=== PATIENT | female | born 1970 | race Caucasian/White ===

== ENCOUNTER → 2022-07-09 13:54 | Outpatient (CLI) | payer OTHER, MEDICAID, SELFPAY ==
[2022-07-09 15:03] LABS: Add Manual Diff / Slide Review NO; Basophils Absolute Auto 0 /uL (0-100); Basophils Percent Auto 0.5 % (0-2); Eosinophils Absolute Auto 500 /uL (0-450); Eosinophils Percent Auto 8.5 % (2-4); Hematocrit 38.4 % (36-46); Hemoglobin 13.1 g/dL (12.0-16.0); Lymphocytes Absolute Auto 1600 /uL (1100-4500); Lymphocytes Percent Auto 26.2 % (25-40); Mean Corpuscular HGB Conc 34.1 % (30-36); Mean Corpuscular Hemoglobin 29.6 PG (26-34); Mean Corpuscular Volume 86.7 fL (80-100); Monocytes Absolute Auto 400 /uL (0-900); Monocytes Percent Auto 5.8 % (3-14); Neutrophils Absolute Auto 3600 /uL (1500-7000); Platelet Count 333 X10^3/uL (150-400); Red Blood Cell Count 4.43 X10^6/uL (4.0-5.2); Red Cell Distribution Width 13.2 % (11.6-14.8); White Blood Cell Count 6.1 X10^3/uL (4.5-11.0)
[2022-07-09 15:39] LABS: Appearance Urine UA CLEAR; Bilirubin Urine UA NEGATIVE (NEGATIVE); Color Urine UA YELLOW; Glucose Urine UA NEGATIVE (Negative); Ketones Urine UA NEGATIVE (NEGATIVE); Leukocyte Esterase Urine UA TRACE (NEGATIVE); Nitrite Urine UA NEGATIVE (Negative); Occult Blood Urine UA 1+ (Negative); Protein Urine UA NEGATIVE (Negative); Urobilinogen Urine UA 0.2 E.U./dL (0.2)
[2022-07-09 15:49] LABS: Bacteria Urine Occasional (0-1); Culture Indicated Urine Specimen Cultured; RBC Urine 1-5/HPF (0-5/HPF); Squamous Epithelial Cell Urine 0-1 /HPF (0-5/HPF); WBC Urine 0-1/HPF (0-5/HPF)
[2022-07-09 17:09] LABS: Urine N gonorrhoeae NOT DETECTED
[2022-07-09 17:13] LABS: Alanine Aminotransferase 30 IU/L (<35); Albumin 4.5 g/dL (3.5-5.0); Albumin Globulin Ratio 1.3 (1.0-2.8); Alkaline Phosphatase 61 U/L (38-126); Aspartate Aminotransferase 32 IU/L (14-36); BUN Creatinine Ratio 17.2 (6-22); Bilirubin Total 0.5 mg/dL (0.2-1.3); Blood Urea Nitrogen 11 mg/dL (7-17); Calcium 9.4 mg/dL (8.4-10.2); Carbon Dioxide 31 mmol/L (22-32); Chloride 99 mmol/L (98-107); Cholesterol 253 mg/dL (140-199); Estimated Glomerular Filt Rate > 60 mL/min (>60); Globulin 3.4 g/dL (1.7-4.1); Glucose 85 mg/dL (70-100); HDL Cholesterol 51 mg/dL (40-60); HEMOLYSIS < 15 (0-50); LDL Cholesterol Calculated 154 mg/dL (<100); Sodium 137 mmol/L (137-145); Total Protein 7.9 g/dL (6.3-8.2); Triglycerides 242 mg/dL (35-150)
[2022-07-09 17:39] LABS: Urine Chlamydia NOT DETECTED
[2022-07-09 17:46] LABS: TSH w/ Reflex to FT4 0.89 uIU/mL (0.47-4.68)
[2022-07-10 16:00] LABS: Hemoglobin A1C% w Est Avg Glu 5.4 % (4.0-6.0)
== END ==
PROVIDERS: PCP Family Medicine; Referring Provider Family Medicine; Visit Provider Family Medicine
DX: I10 Essential (primary) hypertension; Z11.3 Encounter for screening for infections with a predominantly sexual mode of transmission
CPT/HCPCS: 36415; 80053; 80061; 81001; 83036; 84443; 85025; 87086; 87491; 87591

== ENCOUNTER → 2022-07-12 14:30 | Outpatient (CLI) | payer OTHER, MEDICAID, SELFPAY ==
[2022-07-16 07:44] LABS: Fecal Immunochemical Test Negative (Negative)
== END ==
PROVIDERS: PCP Family Medicine; Referring Provider Family Medicine; Visit Provider Family Medicine
DX: I10 Essential (primary) hypertension (principal)
CPT/HCPCS: 82274

== ENCOUNTER → 2022-09-03 11:20 | Outpatient (CLI) | payer OTHER, MEDICAID, SELFPAY ==
[2022-09-03 12:50] LABS: Influenza A - CEPHEID Flu A NEGATIVE (NEGATIVE); Influenza B - CEPHEID Flu B NEGATIVE (NEGATIVE); Respiratory Syncytial Virus Negative (Negative)
[2022-09-03 13:19] LABS: COVID-19 CEPHEID 4-PLEX PCR Negative (Negative)
== END ==
PROVIDERS: PCP Family Medicine; Visit Provider Family Medicine
DX: R05.9 Cough, unspecified (principal)
CPT/HCPCS: 0241U

== ENCOUNTER → 2022-09-22 11:55 | Outpatient (CLI) | payer OTHER, MEDICAID, SELFPAY ==
[2022-09-22 13:11] LABS: TSH w/ Reflex to FT4 1.72 uIU/mL (0.47-4.68)
[2022-09-22 14:33] LABS: Add Manual Diff / Slide Review NO; Basophils Absolute Auto 0 /uL (0-100); Basophils Percent Auto 0.5 % (0-2); Eosinophils Absolute Auto 500 /uL (0-450); Eosinophils Percent Auto 6.1 % (2-4); Hematocrit 36.3 % (36-46); Hemoglobin 12.5 g/dL (12.0-16.0); Lymphocytes Absolute Auto 1600 /uL (1100-4500); Lymphocytes Percent Auto 19.4 % (25-40); Mean Corpuscular HGB Conc 34.4 % (30-36); Mean Corpuscular Hemoglobin 30.3 PG (26-34); Mean Corpuscular Volume 88.1 fL (80-100); Monocytes Absolute Auto 400 /uL (0-900); Monocytes Percent Auto 4.5 % (3-14); Neutrophils Absolute Auto 5700 /uL (1500-7000); Neutrophils Percent Auto 69.5 % (50-75); Platelet Count 426 X10^3/uL (150-400); Red Blood Cell Count 4.12 X10^6/uL (4.0-5.2); Red Cell Distribution Width 13.3 % (11.6-14.8); White Blood Cell Count 8.2 X10^3/uL (4.5-11.0)
== END ==
PROVIDERS: Family Medicine; PCP Family Medicine; Referring Provider Family Medicine; Visit Provider Family Medicine
DX: E89.0 Postprocedural hypothyroidism (principal)
CPT/HCPCS: 36415; 84443; 85025

== ENCOUNTER 2022-10-05 19:00 | Emergency (ER) | payer OTHER, MEDICAID, SELFPAY ==
[2022-10-05 19:18] VITALS: BP 162/89; PULSE 95; RESP 17; TEMP 36.6; O2SAT 97; BMI 29.7
--- NOTE | 2022-10-05 19:25 | DI.RAD.S_ITS ---
PROCEDURE: XR CHEST 1V INDICATIONS: chest pain TECHNIQUE: One view of the chest was acquired. COMPARISON: None. FINDINGS: Surgical changes and devices: None. Lungs and pleura: Lungs are clear. No pleural effusions or pneumothorax. Mediastinum: Mediastinal contours appear normal. Heart size is normal. Bones and chest wall: No suspicious bony lesions. Overlying soft tissues appear unremarkable. IMPRESSION: No acute cardiopulmonary abnormality. Dictated by: David Robert M.D. on 10/05/2022 at 20:20 Approved by: David Robert M.D. on 10/05/2022 at 20:20
--- NOTE | 2022-10-05 19:52 | ED.CHESTPAIN ---
HPI - Chest Pain General Chief Complaint: Chest Pain Stated Complaint: Sent by doctor, Pain in head Time Seen by Provider: 10/05/22 19:25 Source: patient Mode of arrival: Ambulatory Limitations: no limitations Related Data Previous Rx's Medication Instructions Recorded losartan 50 mg tablet 50 mg PO DAILY blood pressure #90 07/09/22 tabs levothyroxine 150 mcg capsule 150 mcg PO DAILY #90 caps 08/03/22 Allergies Allergy/AdvReac Type Severity Reaction Status Date / Time codeine Allergy Intermediate Vomiting Verified 09/24/22 10:12 Sulfa (Sulfonamide Allergy Intermediate Hives Verified 09/24/22 10:12 Antibiotics) Patient History Medical History (Updated 08/13/22 @ 08:48 by Esau Aldrich DO) Absent kidney, congenital Benign essential HTN Chicken pox (~1977) Family history of pancreatic cancer Heavy menstrual period (~1998) Hyperlipidemia Hyperthyroidism (~2009) Hypothyroid (~2019) Lung nodule (~2017) Painful menstrual periods Family History (Updated 08/09/22 @ 21:39 by Lupe De León) Father History of heart disease Hypertension Mother Cancer Sister Hyperthyroidism Grandfather Cancer Grandmother Stroke Dementia Grandmother Diabetes mellitus Family/Other Diabetes type I Social History Smoking Status: Never smoker Smoking Status: Never smoker alcohol intake frequency: a few times a month Substance Use Type: does not use Exam Initial Vital Signs Initial Vital Signs: Vital Signs Temperature 97.8 F 10/05/22 19:18 Pulse Rate 95 H 10/05/22 19:18 Respiratory Rate 17 10/05/22 19:18 Blood Pressure 162/89 H 10/05/22 19:18 Pulse Oximetry 97 10/05/22 19:18 Oxygen Delivery Method Room Air 10/05/22 19:18 Course Orders Ordered: ED Orders 10/05/22 19:25 XR chest 1V Stat Complete Blood Count AUTO DIFF Stat Comprehensive Metabolic Panel Stat Lipase Stat Troponin & CK Cardiac Panel Stat EKG-12 Lead Stat Sodium Chloride (Normal Saline 0.9%) 1,000 mls @ 150 mls/hr IV CONT FERNY Discontinued Medications Aspirin (Aspirin 81 Mg Chew Tab) 324 mg PO NOW ONE Stop: 10/05/22 19:26 Vital Signs Vital signs: Vital Signs - 8 hr 10/05/22 19:18 Temperature 97.8 F Pulse Rate 95 H Respiratory Rate 17 Blood Pressure 162/89 H Pulse Oximetry 97 Oxygen Delivery Method Room Air Discharge Plan Departure Prescriptions: No Action levothyroxine 150 mcg capsule 150 mcg PO DAILY Qty: 90 3RF losartan 50 mg tablet 50 mg PO DAILY Qty: 90 3RF Referrals: Esau Aldrich DO [Primary Care Provider] -
[2022-10-05 20:06] LABS: Add Manual Diff / Slide Review NO; Basophils Absolute Auto 0 /uL (0-100); Basophils Percent Auto 0.4 % (0-2); Eosinophils Absolute Auto 400 /uL (0-450); Eosinophils Percent Auto 5.4 % (2-4); Hematocrit 37.4 % (36-46); Hemoglobin 12.8 g/dL (12.0-16.0); Lymphocytes Absolute Auto 1900 /uL (1100-4500); Lymphocytes Percent Auto 23.6 % (25-40); Mean Corpuscular HGB Conc 34.2 % (30-36); Mean Corpuscular Volume 87.7 fL (80-100); Monocytes Absolute Auto 400 /uL (0-900); Monocytes Percent Auto 4.8 % (3-14); Neutrophils Absolute Auto 5200 /uL (1500-7000); Neutrophils Percent Auto 65.8 % (50-75); Platelet Count 328 X10^3/uL (150-400); Red Blood Cell Count 4.26 X10^6/uL (4.0-5.2); White Blood Cell Count 7.9 X10^3/uL (4.5-11.0)
[2022-10-05 20:15] LABS: Alanine Aminotransferase 25 IU/L (<35); Albumin 4.6 g/dL (3.5-5.0); Albumin Globulin Ratio 1.3 (1.0-2.8); Alkaline Phosphatase 67 U/L (38-126); Aspartate Aminotransferase 28 IU/L (14-36); BUN Creatinine Ratio 14.9 (6-22); Bilirubin Total 0.4 mg/dL (0.2-1.3); Blood Urea Nitrogen 14 mg/dL (7-17); Carbon Dioxide 25 mmol/L (22-32); Chloride 103 mmol/L (98-107); Creatine Kinase 125 U/L (30-135); Estimated Glomerular Filt Rate > 60 mL/min (>60); Globulin 3.5 g/dL (1.7-4.1); Glucose 110 mg/dL (70-100); HEMOLYSIS < 15 (0-50); Lipase 121 U/L (23-300); Potassium 3.5 mmol/L (3.4-5.1); Sodium 139 mmol/L (137-145); Total Protein 8.1 g/dL (6.3-8.2)
[2022-10-05 20:26] LABS: Troponin I 0.059 ng/mL (0.01-0.034)
[2022-10-05 20:30] LABS: CKMB % Relative Index 0.6 % (1.5-5.0); Creatine Kinase MB 0.72 ng/mL (<2.37)
[2022-10-05 21:36] VITALS: BP 138/73; PULSE 71; O2SAT 99
[2022-10-05] MEDS: ASPIRIN 81 MG CHEW TAB 324 MG PO (22:00)
[2022-10-05 22:32] VITALS: BP 122/74; PULSE 68; RESP 16; TEMP 36.3; O2SAT 98
== END 2022-10-05 22:32 | disposition home or self-care (01) ==
PROVIDERS: Emergency Provider Emergency Medicine; PCP Family Medicine
DX: R07.9 Chest pain, unspecified (principal)
CPT/HCPCS: 36415; 71045; 80053; 82550; 82553; 83690; 84484; 85025; 93005; 99284

== ENCOUNTER 2022-10-07 16:21 | Emergency (ER) | payer OTHER, MEDICAID, SELFPAY ==
[2022-10-07 17:03] VITALS: BP 166/107; PULSE 93; RESP 20; TEMP 36.6; O2SAT 100; BMI 28.1
--- NOTE | 2022-10-07 18:22 | PC.NURSE ---
Pt called from waiting room wondering how much longer. She is tired of waiting. This RN encouraged pt to stay and wait.
[2022-10-07 18:29] LABS: Bacteria Urine None Seen; Culture Indicated Urine Cult Not Indicated; RBC Urine 0-1/HPF (0-5/HPF); Squamous Epithelial Cell Urine 0-1 /HPF (0-5/HPF); WBC Urine 0-1/HPF (0-5/HPF)
--- NOTE | 2022-10-07 18:37 | DI.CT.S_ITS ---
PROCEDURE: CT HEAD/BRAIN WO CON INDICATIONS: headache TECHNIQUE: Noncontrast 4.5 mm thick angled axial sections acquired from the foramen magnum to the vertex, with coronal and sagittal reformats. For radiation dose reduction, the following was used: automated exposure control, adjustment of mA and/or kV according to patient size. COMPARISON: None. FINDINGS: Image quality: Excellent. CSF spaces: Basal cisterns are patent. No extra-axial fluid collections. Ventricles are normal in size and shape. Brain: No midline shift. No intracranial masses or hemorrhage. Anna-white matter interface is normal. Skull and face: Calvarium and visualized facial bones are intact, without suspicious lesions. Sinuses: The maxillary sinuses are opacified. IMPRESSION: No acute intracranial abnormality. Dictated by: Brian Rosales M.D. on 10/07/2022 at 18:12 Approved by: Brian Rosales M.D. on 10/07/2022 at 18:14
[2022-10-07 18:58] LABS: Add Manual Diff / Slide Review NO; Basophils Absolute Auto 100 /uL (0-100); Basophils Percent Auto 0.6 % (0-2); Eosinophils Absolute Auto 700 /uL (0-450); Eosinophils Percent Auto 6.9 % (2-4); Hematocrit 38.3 % (36-46); Hemoglobin 13.1 g/dL (12.0-16.0); Lymphocytes Absolute Auto 2500 /uL (1100-4500); Lymphocytes Percent Auto 24.1 % (25-40); Mean Corpuscular HGB Conc 34.1 % (30-36); Mean Corpuscular Hemoglobin 29.7 PG (26-34); Mean Corpuscular Volume 87.2 fL (80-100); Monocytes Absolute Auto 400 /uL (0-900); Monocytes Percent Auto 4.3 % (3-14); Neutrophils Absolute Auto 6600 /uL (1500-7000); Neutrophils Percent Auto 64.1 % (50-75); Platelet Count 371 X10^3/uL (150-400); Red Cell Distribution Width 13.3 % (11.6-14.8); White Blood Cell Count 10.3 X10^3/uL (4.5-11.0)
[2022-10-07 19:08] LABS: Alanine Aminotransferase 25 IU/L (<35); Albumin 4.7 g/dL (3.5-5.0); Albumin Globulin Ratio 1.3 (1.0-2.8); Alkaline Phosphatase 71 U/L (38-126); Aspartate Aminotransferase 27 IU/L (14-36); BUN Creatinine Ratio 17.1 (6-22); Bilirubin Total 0.6 mg/dL (0.2-1.3); Blood Urea Nitrogen 13 mg/dL (7-17); Calcium 9.8 mg/dL (8.4-10.2); Carbon Dioxide 28 mmol/L (22-32); Chloride 101 mmol/L (98-107); Creatine Kinase 94 U/L (30-135); Estimated Glomerular Filt Rate > 60 mL/min (>60); Globulin 3.7 g/dL (1.7-4.1); Glucose 101 mg/dL (70-100); HEMOLYSIS < 15 (0-50); Lipase 75 U/L (23-300); Potassium 3.6 mmol/L (3.4-5.1); Sodium 138 mmol/L (137-145); Total Protein 8.4 g/dL (6.3-8.2)
[2022-10-07 19:19] LABS: Troponin I < 0.012 ng/mL (0.01-0.034)
[2022-10-07 20:02] VITALS: O2SAT 97
[2022-10-07 20:03] VITALS: BP 168/99; PULSE 96; O2SAT 98
--- NOTE | 2022-10-07 20:22 | ED_ITS ---
HPI - Headache General Chief Complaint: Headache Stated Complaint: right eye/sinus pain x7 days Time Seen by Provider: 10/07/22 18:36 Source: patient Mode of arrival: Ambulatory Limitations: no limitations History of Present Illness HPI Narrative: 51-year-old female who I does have a history of headaches. Started to have headaches and sinus pain for the past several days. She has been doing DayQuil and NyQuil and other [id number] medications for the past couple days. She was at the walk-in clinic earlier today. Has prescribed antibiotics and also nasal steroid. She was standing at the pharmacy picking up her medicines where she stated that she became lightheaded so she came to the emergency department for further evaluation. Related Data Previous Rx's Medication Instructions Recorded losartan 50 mg tablet 50 mg PO DAILY blood pressure #90 07/09/22 tabs levothyroxine 150 mcg capsule 150 mcg PO DAILY #90 caps 08/03/22 amoxicillin 875 mg-potassium 1 tab PO BID #14 tabs 10/07/22 clavulanate 125 mg tablet ipratropium bromide 42 mcg (0.06 2 spray intranasal TID 4 days #15 10/07/22 %) nasal spray mL sumatriptan succinate 25 mg tablet See Rx Instructions PO .COMPLEX 10/07/22 (Imitrex) #10 tabs Allergies Allergy/AdvReac Type Severity Reaction Status Date / Time codeine Allergy Intermediate Vomiting Verified 10/07/22 12:31 Sulfa (Sulfonamide Allergy Intermediate Hives Verified 10/07/22 12:31 Antibiotics) Review of Systems Constitutional Constitutional: Reports system reviewed and no additional complaints, except as documented ENT Ears, Nose, Mouth, and Throat: Reports system reviewed and no additional complaints, except as documented Cardiovascular Cardiovascular: Reports system reviewed and no additional complaints, except as documented Respiratory Respiratory: Reports system reviewed and no additional complaints, except as do cumented Integumentary/Breasts Skin/Breast: Reports system reviewed and no additional complaints, except as documented Hematologic/Lymphatic Hematologic/Lymphatic: Reports system reviewed and no additional complaints, except as documented Patient History Medical History Absent kidney, congenital Benign essential HTN Chicken pox (~1977) Family history of pancreatic cancer Heavy menstrual period (~1998) Hyperlipidemia Hyperthyroidism (~2009) Hypothyroid (~2019) Lung nodule (~2018) Painful menstrual periods Family History (Updated 08/09/22 @ 21:39 by Lupe De León) Father History of heart disease Hypertension Mother Cancer Sister Hyperthyroidism Grandfather Cancer Grandmother Stroke Dementia Grandmother Diabetes mellitus Family/Other Diabetes type I Social History Smoking Status: Never smoker Smoking Status: Never smoker alcohol intake frequency: a few times a month Substance Use Type: does not use Exam Initial Vital Signs Initial Vital Signs: Vital Signs Temperature 98 F 10/07/22 17:03 Pulse Rate 93 H 10/07/22 17:03 Respiratory Rate 20 10/07/22 17:03 Blood Pressure 166/107 H 10/07/22 17:03 Pulse Oximetry 100 10/07/22 17:03 Oxygen Delivery Method Room Air 10/07/22 17:03 Const General: cooperative, comfortable and No ill appearing HENMT Head: normal to inspection and normocephalic Resp Effort & Inspection: normal respiratory effort Cardio Rate: regular rate Skin General: no rashes or lesions noted Neuro General: patient alert, patient awake and moves all extremities Extrem General: normal to inspection Course Orders Ordered: ED Orders 10/07/22 18:00 Urine Microscopic Stat 10/07/22 18:14 EKG-12 Lead Stat 10/07/22 18:37 CT head/brain wo con Stat 10/07/22 18:50 Complete Blood Count AUTO DIFF Stat Comprehensive Metabolic Panel Stat Lipase Stat Troponin & CK Cardiac Panel Stat Discontinued Medications Sumatriptan Succinate (Sumatriptan 25 Mg Tablet) 25 mg PO NOW ONE Stop: 10/07/22 20:25 Last Admin: 10/07/22 20:41 Dose: Not Given Documented By: YAMINI Vital Signs Vital signs: Vital Signs - 8 hr 10/07/22 20:02 10/07/22 20:03 10/07/22 20:03 Pulse Rate 96 H Blood Pressure 168/99 H Pulse Oximetry 97 98 MDM - Headache Lab Data Attestation: I reviewed the patient's lab results. 10/07/22 18:50 10/07/22 18:50 Labs: Lab Results 10/07/22 10/07/22 10/07/22 Range/Units 18:00 18:50 18:50 WBC 10.3 (4.5-11.0) X10^3/uL RBC 4.40 (4.0-5.2) X10^6/uL Hgb 13.1 (12.0-16.0) g/dL Hct 38.3 (36-46) % MCV 87.2 (80-100) fL MCH 29.7 (26-34) PG MCHC 34.1 (30-36) % RDW 13.3 (11.6-14.8) % Plt Count 371 (150-400) X10^3/uL Neut % (Auto) 64.1 (50-75) % Lymph % (Auto) 24.1 L (25-40) % [place] % (Auto) 4.3 (3-14) % Eos % (Auto) 6.9 H (2-4) % Baso % (Auto) 0.6 (0-2) % Neut # (Auto) 6600 (4780-5137) /uL Lymph # (Auto) 2500 (6146-2982) /uL [place] # (Auto) 400 (0-900) /uL Eos # (Auto) 700 H (0-450) /uL Baso # (Auto) 100 (0-100) /uL Sodium 138 (137-145) mmol/L Potassium 3.6 (3.4-5.1) mmol/L Chloride 101 (98-107) mmol/L Carbon Dioxide 28 (22-32) mmol/L BUN 13 (7-17) mg/dL Creatinine 0.76 (0.52-1.04) mg/dL Estimated GFR > 60 (>60) mL/min BUN/Creatinine Ratio 17.1 (6-22) Glucose 101 H (70-100) mg/dL Calcium 9.8 (8.4-10.2) mg/dL Total Bilirubin 0.6 (0.2-1.3) mg/dL AST 27 (14-36) IU/L ALT 25 (<35) IU/L Alkaline Phosphatase 71 (38-126) U/L Total Creatine Kinase 94 (30-135) U/L CK-MB (CK-2) TNP CK-MB (CK-2) Rel Index TNP Troponin I < 0.012 (0.01-0.034) ng/mL Total Protein 8.4 H (6.3-8.2) g/dL Albumin 4.7 (3.5-5.0) g/dL Globulin 3.7 (1.7-4.1) g/dL Albumin/Globulin Ratio 1.3 (1.0-2.8) Lipase 75 (23-300) U/L Urine RBC 0-1/hpf (0-5/HPF) Urine WBC 0-1/hpf (0-5/HPF) Ur Squamous Epith Cells 0-1 /hpf (0-5/HPF) Urine Bacteria None seen (None) Ur Culture Indicated? Cult not indicated Urine Dip Bedside Urine Glucose Negative Bedside Urine Bilirubin - Negative Bedside Urine Ketone - Negative Urine Specific [place] 1.005 Bedside Urine Occult Blood +/- Bedside Urine pH 6.0 Bedside Urine Protein - Negative Bedside Urine Urobilinogen - Negative Bedside Urine Nitrite - Negative Bedside Urine Leukocytes - Negative Esterase Imaging Data CT scan - head: Radiologist's Impression: PROCEDURE:? CT HEAD/BRAIN WO CON ? INDICATIONS:? headache ? TECHNIQUE:? Noncontrast 4.5 mm thick angled axial sections acquired from the foramen magnum to the vertex, with coronal and sagittal reformats.? For radiation dose reduction, the following was used:? automated exposure control, adjustment of mA and/or kV according to patient size.? ? COMPARISON:? None. ? FINDINGS:? Image quality:? Excellent.? ? CSF spaces:? Basal cisterns are patent.? No extra-axial fluid collections.? Ventricles are normal in size and shape.? ? Brain:? No midline shift.? No intracranial masses or hemorrhage.? Anna-white matter interface is normal.? ? Skull and face:? Calvarium and visualized facial bones are intact, without suspicious lesions.? ? Sinuses:? The maxillary sinuses are opacified.? ? IMPRESSION: ? No acute intracranial abnormality. ECG Data Attestation: I personally reviewed and interpreted this ECG as follows: Interpretation: Sinus rhythm Ventricular rate 94 Normal axis Normal QRS Normal QTC Nonspecific ST T wave changes MDM Narrative Medical decision making narrative: Patient has a nonfocal neurologic exam. Head CT is unremarkable. No signs of intracranial hemorrhage. I have low suspicion for CVA. Low suspicion for TIA. Low suspicion for meningitis. We did discuss her use of [id number] medications and to make sure that she is not using multiple combination substances that have same medications and them. Patient was given Zomig per her request for her headache. We did discuss the use of antihistamines. We did talk about the antibiotics and she is going to try the nasal steroids 1st and if her symptoms do not improve then she can start the antibiotics. Did discuss that there does not appear to be any frontal sinus disease which is where she is having the symptoms however following up with Ear Nose and Throat is not unreasonable given her length of symptoms. She was given return precautions. She expressed understanding and agreement. Discharge Plan Departure Patient Disposition: Home Clinical Impression: Headache, Sinus congestion Instructions: DI for Headache Activity Restrictions/Additional Instructions: I do recommend that you continue to take all of your medications as directed however you could hold on taking the antibiotics and see whether or not the steroids that you were written a prescription for this morning improve your symptoms. That prescription should be taken for the next couple days per the instructions on the bottle. It would not be unreasonable for you to see ENT. You can talk with your primary doctor about this. Return to the emergency department for any new symptoms. Prescriptions: New sumatriptan succinate [Imitrex] 25 mg tablet See Rx Instructions .ROUTE .COMPLEX Qty: 10 0RF Rx Instructions: take 1 tab at onset of headache; if no relief may repeat 1 tab after at least 2 hrs; max = 4 tabs/24 hr No Action amoxicillin-pot clavulanate 875-125 mg tablet 1 tab PO BID Qty: 14 0RF ipratropium bromide 42 mcg (0.06 %) spray,non-aerosol 2 spray intranasal TID 4 Days Qty: 15 0RF Rx Instructions: administer into each nostril levothyroxine 150 mcg capsule 150 mcg PO DAILY Qty: 90 3RF losartan 50 mg tablet 50 mg PO DAILY Qty: 90 3RF Referrals: Esau Aldrich DO [Primary Care Provider] - Stand Alone Forms: Patient Portal/API
== END 2022-10-07 20:45 | disposition home or self-care (01) ==
PROVIDERS: Emergency Provider Emergency Medicine; PCP Family Medicine
DX: R51.9 Headache, unspecified (principal); R09.81 Nasal congestion; R07.9 Chest pain, unspecified
CPT/HCPCS: 36415; 70450; 80053; 81003; 81015; 82550; 83690; 84484; 85025; 93005; 99281; 99284

== ENCOUNTER 2022-11-13 17:58 | Emergency (ER) | payer OTHER, MEDICAID, SELFPAY ==
[2022-11-13] VITALS (8 sets, daily range): BP systolic 137–178; BP diastolic 66–94; PULSE 56–71; RESP 15–25; TEMP 37.2; O2SAT 97–99; BMI 29.7
--- NOTE | 2022-11-13 18:21 | DI.RAD.S_ITS ---
PROCEDURE: XR CHEST 1V INDICATIONS: chest pain TECHNIQUE: One view of the chest was acquired. COMPARISON: [facility], CR, XR CHEST 1V, 10/05/2022, 19:28. FINDINGS: Surgical changes and devices: None. Lungs and pleura: Lungs are clear. No pleural effusions or pneumothorax. Mediastinum: Mediastinal contours appear normal. Heart size is normal. Bones and chest wall: No suspicious bony lesions. Overlying soft tissues appear unremarkable. IMPRESSION: No acute cardiopulmonary abnormalities or focal airspace disease. Dictated by: Tino Rubio M.D. on 11/13/2022 at 19:29 Approved by: Tino Rubio M.D. on 11/13/2022 at 19:29
[2022-11-13 18:40] LABS: Add Manual Diff / Slide Review NO; Basophils Absolute Auto 0 /uL (0-100); Basophils Percent Auto 0.6 % (0-2); Eosinophils Absolute Auto 1000 /uL (0-450); Hematocrit 36.3 % (36-46); Hemoglobin 12.3 g/dL (12.0-16.0); Lymphocytes Absolute Auto 1800 /uL (1100-4500); Lymphocytes Percent Auto 24.7 % (25-40); Mean Corpuscular HGB Conc 33.9 % (30-36); Mean Corpuscular Hemoglobin 29.6 PG (26-34); Mean Corpuscular Volume 87.3 fL (80-100); Monocytes Absolute Auto 300 /uL (0-900); Monocytes Percent Auto 4.7 % (3-14); Neutrophils Absolute Auto 4200 /uL (1500-7000); Platelet Count 320 X10^3/uL (150-400); Red Blood Cell Count 4.16 X10^6/uL (4.0-5.2); Red Cell Distribution Width 13.2 % (11.6-14.8); White Blood Cell Count 7.3 X10^3/uL (4.5-11.0)
[2022-11-13 18:46] LABS: PTT Partial Thromboplastin Tim 28 SECONDS (26-36)
--- NOTE | 2022-11-13 18:56 | ED_ITS ---
HPI - Headache General Chief Complaint: Headache Stated Complaint: Migraine Time Seen by Provider: 11/13/22 18:38 Source: patient Mode of arrival: Ambulatory Limitations: no limitations History of Present Illness HPI Narrative: Patient is a 51-year-old female who does have a history of migraine headaches. She also states she is had quite a bit of stress in her life recently over various family issues. She is here for evaluation of a couple days increasing tension in the back of her head. She states this is causing a headache. She has tried her headache medication at home without any improvement. She states it is more on the left side. It does hurt when she turns her head does hurt when you touch the left paraspinal region. She is getting some tingling in her left hand occasionally. She also feels like the pain goes down into her upper back. She has been on methocarbamol in the past. Is not on this medication currently because she is run out. She denies any chest pain or shortness of breath. No vomiting. No fevers. Related Data Previous Rx's Medication Instructions Recorded levothyroxine 150 mcg capsule 150 mcg PO DAILY #90 caps 08/03/22 hydroxyzine HCl 10 mg tablet 10 - 20 mg PO TID PRN anxiety #60 10/12/22 tabs losartan 100 mg tablet 100 mg PO DAILY blood pressure #90 10/12/22 tabs escitalopram oxalate 10 mg tablet 10 mg PO DAILY #30 tabs 10/23/22 (Lexapro) ondansetron HCl 4 mg tablet 4 mg PO TID-QID PRN nausea and 10/23/22 vomiting #30 tabs sumatriptan succinate 100 mg See Rx Instructions PO .COMPLEX 10/23/22 tablet (Imitrex) #10 tabs chlorthalidone 25 mg tablet 25 mg PO DAILY blood pressure #90 10/30/22 tabs clonidine HCl 0.2 mg tablet 0.2 mg PO TID PRN hypertensive 10/30/22 emergency #20 tabs propranolol 40 mg tablet 40 mg PO BID #60 tabs 10/30/22 methocarbamol 500 mg tablet 500 mg PO TID PRN muscle spasm #30 11/13/22 tabs Allergies Allergy/AdvReac Type Severity Reaction Status Date / Time codeine Allergy Intermediate Vomiting Verified 10/30/22 15:51 Sulfa (Sulfonamide Allergy Intermediate Hives Verified 10/30/22 15:51 Antibiotics) Review of Systems Review of Systems ROS Unobtainable: All systems reviewed & are unremarkable except as noted in HPI and below Patient History Medical History Absent kidney, congenital Benign essential HTN Chicken pox (~1977) Family history of pancreatic cancer IVIS (generalized anxiety disorder) Heavy menstrual period (~1998) Hyperlipidemia Hyperthyroidism (~2009) Lung nodule (~2017) Migraine Painful menstrual periods Family History (Updated 08/09/22 @ 21:39 by Lupe De León) Father History of heart disease Hypertension Mother Cancer Sister Hyperthyroidism Grandfather Cancer Grandmother Stroke Dementia Grandmother Diabetes mellitus Family/Other Diabetes type I Social History Smoking Status: Never smoker Smoking Status: Never smoker alcohol intake frequency: a few times a month Substance Use Type: does not use Exam Initial Vital Signs Initial Vital Signs: Vital Signs Temperature 98.9 F 11/13/22 18:09 Pulse Rate 71 11/13/22 18:09 Respiratory Rate 20 11/13/22 18:09 Blood Pressure 178/94 H 11/13/22 18:09 Pulse Oximetry 98 11/13/22 18:09 Oxygen Delivery Method Room Air 11/13/22 18:09 Const General: cooperative, comfortable and No ill appearing HENMT Head: normal to inspection and normocephalic Face and sinus: normal facial exam Resp Effort & Inspection: normal respiratory effort Cardio Rate: regular rate Back/Spine/Pelvis Cervical Spine: cervical muscular tenderness (Left-sided paraspinal) and No cervical spinal tenderness Skin General: no rashes or lesions noted Neuro General: patient alert, patient awake, patient oriented x3 and moves all extremities Speech: speech normal Gait: normal gait Extrem General: normal to inspection and capillary refill normal Course Orders Ordered: ED Orders 11/13/22 18:21 XR chest 1V Stat EKG-12 Lead Stat 11/13/22 18:29 Complete Blood Count AUTO DIFF Stat Comprehensive Metabolic Panel Stat Lipase Stat Magnesium Stat PTT Partial Thromboplastin Gaurang Stat Prothrombin Time INR Stat Troponin & CK Cardiac Panel Stat 11/13/22 18:40 COVID19 -Nasal RAPID Stat Discontinued Medications Aspirin (Aspirin 81 Mg Chew Tab) 324 mg PO NOW ONE Stop: 11/13/22 18:22 Last Admin: 11/13/22 19:13 Dose: 324 mg Documented By: AJITH Methocarbamol (Methocarbamol 500 Mg Tablet) 500 mg PO NOW ONE Stop: 11/13/22 18:57 Last Admin: 11/13/22 19:13 Dose: 500 mg Documented By: AJITH Vital Signs Vital signs: Vital Signs - 8 hr 11/13/22 18:09 11/13/22 18:37 11/13/22 18:39 Temperature 98.9 F Pulse Rate 71 63 Respiratory Rate 20 25 H Blood Pressure 178/94 H 160/88 H Pulse Oximetry 98 97 Oxygen Delivery Method Room Air 11/13/22 18:39 11/13/22 19:00 11/13/22 19:01 Temperature Pulse Rate 62 56 L Respiratory Rate 19 17 Blood Pressure 137/66 Pulse Oximetry 97 97 Oxygen Delivery Method 11/13/22 19:01 Temperature Pulse Rate 58 L Respiratory Rate 15 Blood Pressure Pulse Oximetry 97 Oxygen Delivery Method MDM - Headache Lab Data Attestation: I reviewed the patient's lab results. 11/13/22 18:29 11/13/22 18:29 Labs: Lab Results 11/13/22 11/13/22 11/13/22 Range/Units 18:29 18:29 18:29 WBC 7.3 (4.5-11.0) X10^3/uL RBC 4.16 (4.0-5.2) X10^6/uL Hgb 12.3 (12.0-16.0) g/dL Hct 36.3 (36-46) % MCV 87.3 (80-100) fL MCH 29.6 (26-34) PG MCHC 33.9 (30-36) % RDW 13.2 (11.6-14.8) % Plt Count 320 (150-400) X10^3/uL Neut % (Auto) 57.0 (50-75) % Lymph % (Auto) 24.7 L (25-40) % [place] % (Auto) 4.7 (3-14) % Eos % (Auto) 13.0 H (2-4) % Baso % (Auto) 0.6 (0-2) % Neut # (Auto) 4200 (8144-2031) /uL Lymph # (Auto) 1800 (6406-4344) /uL [place] # (Auto) 300 (0-900) /uL Eos # (Auto) 1000 H (0-450) /uL Baso # (Auto) 0 (0-100) /uL PT 12.0 (10.1-12.7) SECONDS INR 1.0 (0.9-1.3) APTT 28 (26-36) SECONDS Sodium 139 (137-145) mmol/L Potassium 3.7 (3.4-5.1) mmol/L Chloride 104 (98-107) mmol/L Carbon Dioxide 27 (22-32) mmol/L BUN 19 H (7-17) mg/dL Creatinine 0.77 (0.52-1.04) mg/dL Estimated GFR > 60 (>60) mL/min BUN/Creatinine Ratio 24.7 H (6-22) Glucose 116 H (70-100) mg/dL Calcium 9.0 (8.4-10.2) mg/dL Magnesium 2.1 (1.6-2.3) mg/dL Total Bilirubin 0.4 (0.2-1.3) mg/dL AST 30 (14-36) IU/L ALT 27 (<35) IU/L Alkaline Phosphatase 51 (38-126) U/L Total Creatine Kinase 131 (30-135) U/L CK-MB (CK-2) 1.03 (<2.37) ng/mL CK-MB (CK-2) Rel Index 0.8 L (1.5-5.0) % Troponin I < 0.012 (0.01-0.034) ng/mL Total Protein 7.1 (6.3-8.2) g/dL Albumin 4.0 (3.5-5.0) g/dL Globulin 3.1 (1.7-4.1) g/dL Albumin/Globulin Ratio 1.3 (1.0-2.8) Lipase 113 (23-300) U/L SARS-CoV-2 (PCR) (Negative) 11/13/22 Range/Units 18:40 WBC (4.5-11.0) X10^3/uL RBC (4.0-5.2) X10^6/uL Hgb (12.0-16.0) g/dL Hct (36-46) % MCV (80-100) fL MCH (26-34) PG MCHC (30-36) % RDW (11.6-14.8) % Plt Count (150-400) X10^3/uL Neut % (Auto) (50-75) % Lymph % (Auto) (25-40) % Vermilion % (Auto) (3-14) % Eos % (Auto) (2-4) % Baso % (Auto) (0-2) % Neut # (Auto) (6274-5304) /uL Lymph # (Auto) (3924-0047) /uL [place] # (Auto) (0-900) /uL Eos # (Auto) (0-450) /uL Baso # (Auto) (0-100) /uL PT (10.1-12.7) SECONDS INR (0.9-1.3) APTT (26-36) SECONDS Sodium (137-145) mmol/L Potassium (3.4-5.1) mmol/L Chloride (98-107) mmol/L Carbon Dioxide (22-32) mmol/L BUN (7-17) mg/dL Creatinine (0.52-1.04) mg/dL Estimated GFR (>60) mL/min BUN/Creatinine Ratio (6-22) Glucose (70-100) mg/dL Calcium (8.4-10.2) mg/dL Magnesium (1.6-2.3) mg/dL Total Bilirubin (0.2-1.3) mg/dL AST (14-36) IU/L ALT (<35) IU/L Alkaline Phosphatase (38-126) U/L Total Creatine Kinase (30-135) U/L CK-MB (CK-2) (<2.37) ng/mL CK-MB (CK-2) Rel Index (1.5-5.0) % Troponin I (0.01-0.034) ng/mL Total Protein (6.3-8.2) g/dL Albumin (3.5-5.0) g/dL Globulin (1.7-4.1) g/dL Albumin/Globulin Ratio (1.0-2.8) Lipase (23-300) U/L SARS-CoV-2 (PCR) Negative (Negative) Imaging Data Chest x-ray: Radiologist's Impression: ROCEDURE:? XR CHEST 1V ? INDICATIONS:? chest pain ? TECHNIQUE:? One view of the chest was acquired.? ? COMPARISON:? Located Within [facility], CR, XR CHEST 1V, 10/05/2022, 19:28. ? FINDINGS:? ? Surgical changes and devices:? None.? ? Lungs and pleura:? Lungs are clear.? No pleural effusions or pneumothorax.? ? Mediastinum:? Mediastinal contours appear normal.? Heart size is normal.? ? Bones and chest wall:? No suspicious bony lesions.? Overlying soft tissues appear unremarkable.? ? IMPRESSION:? No acute cardiopulmonary abnormalities or focal airspace disease. ECG Data Attestation: I personally reviewed and interpreted this ECG as follows: Interpretation: Sinus rhythm Ventricular rate is 62 Normal axis Normal QRS Normal QTC No ST T wave changes MDM Narrative Medical decision making narrative: Patient's labs and EKG and chest x-ray are unremarkable. Low suspicion for cardiac origin. I have a very high suspicion that her symptoms today our attention headache. She has tenderness to palpation left-sided paraspinal region. I suspect that the tingling in her left arm is related to this muscle tension as well. This could be triggering her migraines. She was given a dose of Robaxin here in the ER. Afterward states she does feel somewhat better and feels less tense in her neck. I have low suspicion for an acute intracranial pathology such as a head bleed. I do not feel that we need any radiologic studies of her head. I will refill her Robaxin. She was instructed to continue the rest of her medications as directed. She was given return precautions. She expressed understanding and agreement. Discharge Plan Departure Patient Disposition: Home Clinical Impression: Tension headache Instructions: DI for Headache Activity Restrictions/Additional Instructions: I do recommend that you continue to take all of your medications as directed. Keep all of your scheduled medical appointments. Contact your primary doctor for a follow-up. Return to the emergency department for new or worsening symptoms. Prescriptions: New methocarbamol 500 mg tablet 500 mg PO TID PRN (Reason: muscle spasm) Qty: 30 0RF No Action levothyroxine 150 mcg capsule 150 mcg PO DAILY Qty: 90 3RF losartan 100 mg tablet 100 mg PO DAILY Qty: 90 3RF hydroxyzine HCl 10 mg tablet 10 - 20 mg PO TID PRN (Reason: anxiety) Qty: 60 5RF escitalopram oxalate [Lexapro] 10 mg tablet 10 mg PO DAILY Qty: 30 11RF sumatriptan succinate [Imitrex] 100 mg tablet See Rx Instructions PO .COMPLEX Qty: 10 11RF Rx Instructions: take 1 tab at onset of headache; if no relief, may repeat 1 tab after at least 2 hrs; max = 2 tabs/24 hrs PO ondansetron HCl 4 mg tablet 4 mg PO TID-QID PRN (Reason: nausea and vomiting) Qty: 30 11RF chlorthalidone 25 mg tablet 25 mg PO DAILY Qty: 90 3RF clonidine HCl 0.2 mg tablet 0.2 mg PO TID PRN (Reason: hypertensive emergency) Qty: 20 0RF Rx Instructions: For BP >180/110 propranolol 40 mg tablet 40 mg PO BID Qty: 60 0RF Referrals: Esau Aldrich DO [Primary Care Provider] - Stand Alone Forms: Patient Portal/API
[2022-11-13 19:02] LABS: COVID19 -Nasal RAPID Negative (Negative)
[2022-11-13] MEDS: ASPIRIN 81 MG CHEW TAB 324 MG PO (19:13)
[2022-11-13] MEDS: methocarbamoL 500 MG TABLET PO (19:13)
[2022-11-13 19:35] LABS: Alanine Aminotransferase 27 IU/L (<35); Albumin Globulin Ratio 1.3 (1.0-2.8); Alkaline Phosphatase 51 U/L (38-126); Aspartate Aminotransferase 30 IU/L (14-36); BUN Creatinine Ratio 24.7 (6-22); Bilirubin Total 0.4 mg/dL (0.2-1.3); Blood Urea Nitrogen 19 mg/dL (7-17); Carbon Dioxide 27 mmol/L (22-32); Chloride 104 mmol/L (98-107); Creatine Kinase 131 U/L (30-135); Estimated Glomerular Filt Rate > 60 mL/min (>60); Globulin 3.1 g/dL (1.7-4.1); Glucose 116 mg/dL (70-100); HEMOLYSIS < 15 (0-50); Lipase 113 U/L (23-300); Magnesium 2.1 mg/dL (1.6-2.3); Potassium 3.7 mmol/L (3.4-5.1); Sodium 139 mmol/L (137-145); Total Protein 7.1 g/dL (6.3-8.2)
[2022-11-13 19:46] LABS: Troponin I < 0.012 ng/mL (0.01-0.034)
[2022-11-13 19:49] LABS: CKMB % Relative Index 0.8 % (1.5-5.0); Creatine Kinase MB 1.03 ng/mL (<2.37)
== END 2022-11-13 20:25 | disposition home or self-care (01) ==
PROVIDERS: Emergency Medicine; Emergency Provider Emergency Medicine; PCP Family Medicine
DX: G44.209 Tension-type headache, unspecified, not intractable (principal); R07.9 Chest pain, unspecified; Z20.822 Contact with and (suspected) exposure to COVID-19
CPT/HCPCS: 36415; 71045; 80053; 82550; 82553; 83690; 83735; 84484; 85025; 85610; 85730; 87635; 93005; 99284; C9803

== ENCOUNTER → 2022-11-21 08:11 | Outpatient (CLI) | payer OTHER, MEDICAID, SELFPAY ==
[2022-11-21 09:47] LABS: Pregnancy Test Urine Negative (Negative)
== END ==
PROVIDERS: PCP Family Medicine; Referring Provider Family Medicine; Visit Provider Family Medicine
DX: N91.2 Amenorrhea, unspecified (principal)
CPT/HCPCS: 81025

== ENCOUNTER → 2024-05-27 16:25 | Outpatient (CLI) | payer OTHER, SELFPAY ==
[2024-05-27 18:36] LABS: Hemoglobin A1C% w Est Avg Glu 5.4 % (4.0-6.0)
[2024-05-27 18:48] LABS: Alanine Aminotransferase 24 IU/L (<35); Albumin 4.4 g/dL (3.5-5.0); Albumin Globulin Ratio 1.5 (1.0-2.8); Alkaline Phosphatase 60 U/L (38-126); Aspartate Aminotransferase 31 IU/L (14-36); BUN Creatinine Ratio 15.3 (6-22); Bilirubin Total 0.5 mg/dL (0.2-1.3); Blood Urea Nitrogen 11 mg/dL (7-17); Calcium 9.9 mg/dL (8.4-10.2); Carbon Dioxide 29 mmol/L (22-32); Chloride 102 mmol/L (98-107); Cholesterol 287 mg/dL (140-199); Estimated Glomerular Filt Rate > 60 mL/min (>60); Globulin 2.9 g/dL (1.7-4.1); Glucose 93 mg/dL (70-100); HDL Cholesterol 63 mg/dL (40-60); HEMOLYSIS < 15 (0-50); LDL Cholesterol Calculated 163 mg/dL (<100); Potassium 4.2 mmol/L (3.4-5.1); Sodium 137 mmol/L (137-145); Total Protein 7.3 g/dL (6.3-8.2); Triglycerides 304 mg/dL (35-150)
[2024-05-27 19:18] LABS: TSH w/ Reflex to FT4 1.93 uIU/mL (0.47-4.68)
[2024-05-27 19:47] LABS: HIV 1 & 2 Ab/Ag 4th Gen Combo NEGATIVE (NEGATIVE); Hep C Virus Ab w/Reflex Quant NEGATIVE s/c (NEGATIVE)
== END ==
PROVIDERS: PCP Family Medicine; Referring Provider Family Medicine; Visit Provider Family Medicine
DX: E05.90 Thyrotoxicosis, unspecified without thyrotoxic crisis or storm (principal); I10 Essential (primary) hypertension; E78.5 Hyperlipidemia, unspecified; R73.01 Impaired fasting glucose; Q60.2 Renal agenesis, unspecified
CPT/HCPCS: 80053; 80061; 83036; 84443; 86803; 87389

== ENCOUNTER → 2024-06-10 11:57 | Outpatient (ROUT) | payer OTHER, SELFPAY ==
[2024-06-10 12:06] LABS: Bacteria Urine Few (2-10); Culture Indicated Urine Cult Not Indicated; RBC Urine 1-5/HPF (0-5/HPF); Squamous Epithelial Cell Urine 1-5 /HPF (0-5/HPF); Urine Volume 10mL (spun); WBC Urine 0-1/HPF (0-5/HPF)
== END ==
PROVIDERS: PCP Family Medicine; Visit Provider Physician Assistant
DX: Z11.51 Encounter for screening for human papillomavirus (HPV) (principal); Z12.4 Encounter for screening for malignant neoplasm of cervix; R31.9 Hematuria, unspecified
CPT/HCPCS: 81015

== ENCOUNTER → 2024-11-06 09:56 | Outpatient (CLI) | payer OTHER, SELFPAY ==
[2024-11-06 11:34] LABS: Alanine Aminotransferase 20 IU/L (<35); Albumin 4.7 g/dL (3.5-5.0); Albumin Globulin Ratio 2.2 (1.0-2.8); Alkaline Phosphatase 57 U/L (38-126); Aspartate Aminotransferase 24 IU/L (14-36); BUN Creatinine Ratio 17.4 (6-22); Bilirubin Total 1.3 mg/dL (0.2-1.3); Blood Urea Nitrogen 12 mg/dL (7-17); Calcium 9.7 mg/dL (8.4-10.2); Carbon Dioxide 27 mmol/L (22-32); Chloride 104 mmol/L (98-107); Cholesterol 149 mg/dL (140-199); Estimated Glomerular Filt Rate > 60 mL/min (>60); Globulin 2.1 g/dL (1.7-4.1); Glucose 106 mg/dL (70-100); HDL Cholesterol 48 mg/dL (40-60); HEMOLYSIS < 15 (0-50); LDL Cholesterol Calculated 73 mg/dL (<100); Potassium 3.9 mmol/L (3.4-5.1); Sodium 141 mmol/L (137-145); Total Protein 6.8 g/dL (6.3-8.2); Triglycerides 140 mg/dL (35-150)
[2024-11-06 12:03] LABS: TSH w/ Reflex to FT4 < 0.02 uIU/mL (0.47-4.68)
[2024-11-06 12:29] LABS: Free T4, Direct Thyroxine 1.79 ng/dL (0.78-2.19)
== END ==
PROVIDERS: PCP Family Medicine; Referring Provider Family Medicine; Visit Provider Family Medicine
DX: E03.9 Hypothyroidism, unspecified (principal); E78.5 Hyperlipidemia, unspecified; I10 Essential (primary) hypertension; G47.00 Insomnia, unspecified; Z63.79 Other stressful life events affecting family and household; R30.0 Dysuria
CPT/HCPCS: 36415; 80053; 80061; 84439; 84443; 87086

== ENCOUNTER → 2025-06-22 17:33 | Outpatient (CLI) | payer OTHER, SELFPAY ==
--- NOTE | 2025-06-22 17:33 | DI.MG.S_ITS ---
MM screening mammo BI: 06/22/2025. BI-RADS: 1 CLINICAL: 54-year old female for bilateral screening mammogram. Tyrer-Cuzick lifetime risk of 8.9%. No personal or first-degree family history of breast cancer. PRIOR EXAMS: 02/07/23, 10/16/13. MAMMOGRAPHY TECHNIQUE: 2D and 3D (tomosynthesis) digital mammographic views obtained, with additional images as needed for full coverage. Current study was also evaluated with a Computer Aided Detection (CAD) system. DENSITY B. There are scattered areas of fibroglandular density. MAMMOGRAPHY FINDINGS Bilateral: No suspicious mass, asymmetry, microcalcification, or other abnormality seen. IMPRESSION: * No evidence of malignancy. RECOMMENDATIONS Bilateral * Annual screening mammography. OVERALL ASSESSMENT CATEGORY BI-RADS-1: Negative. The [employer] recommends annual screening mammography beginning at age 40 for women with average risk of breast cancer. ELECTRONICALLY SIGNED: Tino Rubio M.D. on 06/23/2025 at 08:00:29 AM PT Interpreting Station ID: [id number]
== END ==
PROVIDERS: PCP Family Medicine; Referring Provider Family Medicine; Visit Provider Family Medicine
DX: Z12.31 Encounter for screening mammogram for malignant neoplasm of breast (principal)
CPT/HCPCS: 77063; 77067